=== PATIENT | male | born 1995 | race Caucasian/White ===

== ENCOUNTER 2021-06-18 02:33 | Emergency (ER) | payer OTHER ==
[2021-06-18] MEDS ORDERED: Bupivacaine 0.5% 10 ML SDV INJECT ONE (02:58)
[2021-06-18] MEDS ORDERED: Bacitracin/Neomycin/Polymyxin B Oint 0.9 GM U/D Packet TOP ONE (03:30)
--- NOTE | 2021-06-18 03:50 | EDM.PDOC ---
ED HPI GENERAL MEDICAL PROBLEM - General Chief Complaint: Laceration Stated Complaint: Left ring finger laceration Time Seen by Provider: 06/18/21 02:53 Source of Information: Reports: Patient History Limitations: Reports: No Limitations - History of Present Illness INITIAL COMMENTS - FREE TEXT/NARRATIVE: Patient smashed tip left ring finger between two pieces of metal while working at [employer]. Tetanus updated 2018. No other injuries/changes reported. - Related Data Allergies Allergy/AdvReac Type Severity Reaction Status Date / Time acetaminophen [From Percocet] Allergy Nausea and Verified 06/18/21 02:35 Vomiting oxycodone [From Percocet] Allergy Nausea and Verified 06/18/21 02:35 Vomiting Home Meds: Home Meds Fexofenadine [Nory] 1 tab PO DAILY PRN 06/18/21 [History] Past Medical History HEENT History: Reports: Other (See Below) Other HEENT History: seasonal allergies Endocrine/Metabolic History: Reports: Obesity/BMI 30+ - Past Surgical History Musculoskeletal Surgical History: Reports: Other (See Below) Other Musculoskeletal Surgeries/Procedures:: Right wrist surgery Social & Family History - Tobacco Use Tobacco Use Within Last Twelve Months: Snuff/Dip - Caffeine Use Caffeine Use: Reports: Coffee, Energy Drinks - Recreational Drug Use Recreational Drug Use: No ED ROS GENERAL - Review of Systems Review Of Systems: Comprehensive ROS is negative, except as noted in HPI. ED EXAM, SKIN/RASH Exam: See Below Exam Limited By: No Limitations General Appearance: Alert, WD/WN, No Apparent Distress Eye Exam: Bilateral Eye: EOMI, PERRL Ears: Hearing Grossly Normal Nose: No: Nasal Deformity, Nasal Swelling, Nasal Drainage Throat/Mouth: Normal Lips, Normal Voice, No Airway Compromise Head: Atraumatic, Normocephalic Neck: Supple Respiratory/Chest: No Respiratory Distress Peripheral Pulses: 2+: Radial (L) Extremities: Normal Range of Motion, Normal Capillary Refill, Other (laceration tip left 4th digit. Nail intact) Neurological: Alert, Oriented, Normal Cognition, Normal Gait, No Motor/Sensory Deficits Psychiatric: Normal Affect, Normal Mood Skin: Warm, Other (laceration left ring finger) ED SKIN PROCEDURES - Laceration/Wound Repair Left Distal Digit - 4th (Ring) Appearance: Subcutaneous, Irregular, Clean Distal NVT: Neuro & Vascular Intact, No Tendon Injury Anesthetic Type: Digital Local Anesthesia - Lidocaine (Xylocaine): 1% Plain Local Anesthesia - Bupivicaine (Marcaine): 0.5% Plain Local Anesthetic Volume: Other (2.5 cc injected into each side base of finger) Skin Prep: Providone-Iodine (Betadine) Exploration/Debridement/Repair: Wound Explored, In a Bloodless Field, Explored to Base, No Foreign Material Found Lac/Wound length In cm: 3 # of Sutures: 8 Suture Type: Nylon, Interrupted Suture Size: 4-0 Drain Placement: No Sterile Dressing Applied: Nurse Tetanus Status Addressed: Yes Complications: No Course - Vital Signs Last Recorded V/S: Last Vital Signs Temp 36.7 C 06/18/21 02:53 Pulse 79 06/18/21 02:53 Resp 16 06/18/21 02:53 BP 123/70 06/18/21 02:53 Pulse Ox 99 06/18/21 02:53 - Orders/Labs/Meds Orders: Active Orders 24 hr Category Date Time Status Fingers Fourth Digit Lt F3 [CR] Stat Exams 06/18/21 02:36 Taken Meds: Medications Discontinued Medications Generic Name Dose Route Start Last Admin Trade Name Kiarra PRN Reason Stop Dose Admin Bupivacaine HCl 10 ml 06/18/21 02:58 06/18/21 03:06 Bupivacaine 0.5% 10 Ml Sdv INJECT 06/18/21 02:59 10 ml ONETIME ONE Administration Lidocaine HCl 5 ml 06/18/21 02:58 06/18/21 03:06 Lidocaine 1% 5 Ml Sdv INJECT 06/18/21 02:59 5 ml ONETIME ONE Administration Neomycin/Polymyxin/Bacitracin 1 each 06/18/21 03:30 Bacitracin/Neomycin/Polymyxin B Oint 0.9 Gm U/D Packet TOP 06/18/21 03:31 ONETIME ONE - Re-Assessments/Exams Free Text/Narrative Re-Assessment/Exam: 06/18/21 03:49 No obvious fracture of tuft distal left 4th digit noted on xray. Pending formal radiology review. Laceration repaired. Wound care reviewed. Patient is off work until he gets wound recheck in 3 days (Sunday). Further restrictions as needed at that time. Sutures to remain in place 10-12 days. Will start on Keflex as precaution. Departure - Departure Time of Disposition: 03:50 Disposition: Home, Self-Care 01 Condition: Good Clinical Impression: Laceration of left ring finger w/o foreign body w/o damage to nail Qualifiers: Encounter type: initial encounter Qualified Code(s): S61.215A - Laceration without foreign body of left ring finger without damage to nail, initial encounter - Discharge Information *PRESCRIPTION DRUG MONITORING PROGRAM REVIEWED*: Not Applicable *COPY OF PRESCRIPTION DRUG MONITORING REPORT IN PATIENT ALISON: Not Applicable Instructions: Laceration Care, Adult, [id number] Referrals: PCP,None [Primary Care Provider] - Additional Instructions: Schedule wound check on Sunday with your local clinic. Further work restrictions at that time (grasp limitations/etc). Sutures should stay in place approx 12 days given your job. They can be removed here at our clinic at that time. Follow up as needed if you note any problems, such as signs of infection. Sepsis Event Note (ED) - Evaluation Sepsis Screening Result: No Definite Risk - Focused Exam Vital Signs: Vital Signs Temp Pulse Resp BP Pulse Ox 06/18/21 02:53 36.7 C 79 16 123/70 99 - My Orders Last 24 Hours: My Active Orders 06/18/21 02:36 Fingers Fourth Digit Lt F3 [CR] Stat - Assessment/Plan Last 24 Hours: My Active Orders 06/18/21 02:36 Fingers Fourth Digit Lt F3 [CR] Stat
== END 2021-06-18 04:15 | disposition home or self-care (01) ==
LOC: LL.ED 02:33
DX: S61.215A Laceration without foreign body of left ring finger without damage to nail, initial encounter (principal); F17.290 Nicotine dependence, other tobacco product, uncomplicated; E66.9 Obesity, unspecified; Z68.41 Body mass index [BMI] 40.0-44.9, adult; Z88.5 Allergy status to narcotic agent; W23.0XXA Caught, crushed, jammed, or pinched between moving objects, initial encounter; Y92.89 Other specified places as the place of occurrence of the external cause; Y99.0 Civilian activity done for income or pay
CPT/HCPCS: 12002; 73140; 99283; J3490